=== PATIENT | female | born 1945 | race American Indian/Alaskan Native ===

== ENCOUNTER 2017-06-30 08:30 | Outpatient (CLI) | payer MEDICARE ==
--- NOTE | 2017-06-30 10:02 | XRay Report ---
XRAY BILATERAL HIPS AND AP PELVIS THREE VIEWS: 06/30/17 CLINICAL: Bilateral hip pain FINDINGS: Right: No fracture or dislocation. A large lucent expansile lesion involves the femoral neck and proximal femoral metaphysis. Heterotopic new bone formation at the proximal femur. Moderate osteoarthritis of the hip joint with joint space narrowing, acetabular eburnation and osteophytes. Left: No fracture or dislocation. Mild osteoarthritis with mild joint space narrowing and superior acetabular eburnation.Normal soft tissues. The right iliac weighing is smaller than the left and there is a central lucent lesion in the right ilium. Cortical thickening and irregularity of the superior aspect of the right iliac bone. Mild bilateral SI joint sclerosis. Subtle lucent lesions of the bilateral inferior pubic rami with cortical irregularity associated with them.The SI joints are normal. IMPRESSION: 1. 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 2. Moderate osteoarthritis of the right hip and minimal osteoarthritis of the left hip. 3. 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 The hypoplasia may be congenital but the other findings suggest remote trauma.
== END 2017-06-30 08:31 | disposition home or self-care (01) ==
LOC: SPVIMAG 08:30
PROVIDERS: ATTEND Orthopaedic Surgery
DX: M16.0 Bilateral primary osteoarthritis of hip (principal); M89.9 Disorder of bone, unspecified
CPT/HCPCS: 73521